=== PATIENT | female | born 1980 | race Caucasian/White ===

== ENCOUNTER 2018-06-23 11:36 | Inpatient (IN) | payer OTHER, SELFPAY ==
[2018-06-23 11:52] VITALS: BMI 24.2
[2018-06-23] MEDS ORDERED: Iohexol 240 (50 ml) PO ONE (12:17)
--- NOTE | 2018-06-23 12:30 | ED PDOC ---
HPI: Abdomen History Per: Patient History/Exam Limitations: no limitations Onset/Duration Of Symptoms: Days Current Symptoms Are (Timing): Still Present Severity: Moderate Location Of Pain/Discomfort: RLQ, Epigastric Associated Symptoms: Loss Of Appetite <Johanne Brian - Last Filed: 06/23/18 17:22> <Sonido Turner III - Last Filed: 07/12/18 14:36> Time Seen by Provider: 06/23/18 12:15 Chief Complaint (Nursing): Abdominal Pain Additional Complaint(s): 37-year-old female, presents to the emergency department with complaints of epigastric abdominal pain ongoing for the past three days. Pain is intermittent in nature and associated with a decreased appetite. Pt states pain became more constant over the past two days, radiating to the right lower quadrant. LMP 06/01. Patient denies hx of abdominal surgeries, nausea/vomiting, diarrhea, dysuria, fever or chills. No other complaints at this time. (Johanne Brian) 37-year-old female, presents to the emergency department with complaints of epigastric abdominal pain ongoing for the past three days. Pain is intermittent in nature and associated with a decreased appetite. Pt states pain became more constant over the past two days, radiating to the right lower quadrant. LMP 06/01. Patient denies hx of abdominal surgeries, nausea/vomiting, diarrhea, dysuria, fever or chills. No other complaints at this time. (Sonido Turner III) Supervising Attending Note - Attestation: I have reviewed all pertinent clinical information: Yes <Sonido Turner III - Last Filed: 07/12/18 14:36> Past Medical History Reviewed: Historical Data, Vital Signs - Medical History PMH: Asthma - Family History Family History: States: No Known Family Hx <Johanne Brian - Last Filed: 06/23/18 17:22> <Sonido Turner III - Last Filed: 07/12/18 14:36> Vital Signs: Last Vital Signs Temp 98.3 F 06/26/18 07:55 Pulse 65 06/26/18 07:55 Resp 18 06/26/18 07:55 BP 96/63 L 06/26/18 07:55 Pulse Ox 99 06/26/18 07:55 - Home Medications Home Medications: Ambulatory Orders Medication Instructions Recorded Albuterol HFA [Ventolin HFA 90 2 puff IH PRN PRN 03/10/16 mcg/actuation (8 g)] Docusate Sodium [Colace] 100 mg PO BID #30 capsule 06/26/18 RX: Ibuprofen [Motrin Tab] 800 mg PO Q8H PRN #21 tab 06/26/18 - Allergies Allergies/Adverse Reactions: Allergies Allergy/AdvReac Type Severity Reaction Status Date / Time No Known Allergies Allergy Verified 03/06/16 12:53 Physical Exam - Reviewed Nursing Documentation Reviewed: Yes Vital Signs Reviewed: Yes - Physical Exam Appears: Positive for: Non-toxic, No Acute Distress Head Exam: Positive for: ATRAUMATIC, NORMOCEPHALIC Skin: Positive for: Normal Color, Warm, Dry. Negative for: Rash Eye Exam: Positive for: Normal appearance Neck: Positive for: Painless ROM Cardiovascular/Chest: Positive for: Regular Rate, Rhythm. Negative for: Murmur Respiratory: Positive for: Normal Breath Sounds. Negative for: Decreased Breath Sounds, Accessory Muscle Use Gastrointestinal/Abdominal: Positive for: Soft, Tenderness (+RLQ, Mild epigastric.). Negative for: Mass, Guarding, Rebound Back: Negative for: L CVA Tenderness, R CVA Tenderness Extremity: Positive for: Normal ROM. Negative for: Deformity Neurologic/Psych: Positive for: Alert <Johanne Brian - Last Filed: 06/23/18 17:22> - Laboratory Results Result Diagrams: 06/23/18 13:20 06/23/18 13:20 - ECG O2 Sat by Pulse Oximetry: 99 Pulse Ox Interpretation: Normal (RA) <Johanne Brian - Last Filed: 06/23/18 17:22> - Laboratory Results Result Diagrams: 06/26/18 05:24 06/25/18 08:50 <Sonido Turner III - Last Filed: 07/12/18 14:36> - Progress ED Course And Treament: NS 1 LITER 500 ML PER HOUR: TRANSVAGINAL US: IMPRESSION: No evidence of fibroid uterus or focal endometrial abnormality. Moderate amount of free fluid in the pelvis which could be physiologic or related to cyst rupture. CT ABD/PELVIS: IMPRESSION: Acute appendicitis with inflammatory changes extending to the terminal ileum and cecum consistent with ruptured appendix and walled-off phlegmon. Communication of results: I discussed findings directly with physician biology laboratory assistant Johanne Brian in the emergency department at 16:11 CALL PLACED TO SURG 16:18 D/W SURG RES 16:24. WE WILL CALL ATTENDING TO DISCUSS THEY ARE AT [facility].375GM IV D/W DR. SEGUNDO 16:48; ADMIT TO CHARLES; KEEP NPO; ZYOSYN 3.375GM Q8 (Johanne Brian) NS 1 LITER 500 ML PER HOUR: TRANSVAGINAL US: IMPRESSION: No evidence of fibroid uterus or focal endometrial abnormality. Moderate amount of free fluid in the pelvis which could be physiologic or related to cyst rupture. CT ABD/PELVIS: IMPRESSION: Acute appendicitis with inflammatory changes extending to the terminal ileum and cecum consistent with ruptured appendix and walled-off phlegmon. Communication of results: I discussed findings directly with physician biology laboratory assistant Johanne Brian in the emergency department at 16:11 CALL PLACED TO SURG 16:18 D/W SURG RES 16:24. WE WILL CALL ATTENDING TO DISCUSS THEY ARE AT [facility] IN [facility] 3.375GM IV D/W DR. SEGUNDO 16:48; ADMIT TO CHARLES; KEEP NPO; ZYOSYN 3.375GM Q8 (Sonido Turner III) Medical Decision Making <Johanne Brian - Last Filed: 06/23/18 17:22> <Sonido Turner III - Last Filed: 07/12/18 14:36> Medical Decision Making: Impression: Abdominal pain Plan: * Bloodwork * CT Abd/Pel * UA * Reassess and Disposition Scribe Attestation: Documented by Yolande Villanueva, acting as a scribe for REUBEN Rayo. Provider Scribe Attestation: All medical record entries made by the Scribe were at my direction and personally dictated by me. I have reviewed the chart and agree that the record accurately reflects my personal performance of the history, physical exam, medical decision making, and the department course for this patient. I have also personally directed, reviewed, and agree with the discharge instructions and disposition. (Johanne Brian) Impression: Abdominal pain Plan: * Bloodwork * CT Abd/Pel * UA * Reassess and Disposition Scribe Attestation: Documented by Yolande Villanueva, acting as a scribe for REUBEN Rayo. Provider Scribe Attestation: All medical record entries made by the Scribe were at my direction and personally dictated by me. I have reviewed the chart and agree that the record accurately reflects my personal performance of the history, physical exam, m edical decision making, and the department course for this patient. I have also personally directed, reviewed, and agree with the discharge instructions and disposition. (Sonido Turner III) Disposition - Patient ED Disposition Is Patient to be Admitted: Yes - Disposition Disposition Time: 16:48 - Pt Status Changed To: Hospital Disposition Of: Inpatient - Admit Certification Admit to Inpatient:: After my assessment, the patient will require hospitalization for at least two midnights. This is because of the severity of symptoms shown, intensity of services needed, and/or the medical risk in this patient being treated as an outpatient. <Johanne Brian - Last Filed: 06/23/18 17:22> <Sonido Turner III - Last Filed: 07/12/18 14:36> - Clinical Impression Clinical Impression: Appendicitis - Disposition Condition: STABLE
[2018-06-23 13:40] LABS: BASO % 0.2 % (0.0-2.0); EOS # 0.2 K/uL (0.0-0.7); EOS % 1.9 % (0.0-4.0); HEMOGLOBIN 13.5 g/dL (12.0-16.0); LYMPH # 1.8 K/uL (1.0-4.3); LYMPH % 18.2 % (20.0-40.0); MEAN CELL VOLUME 89.9 fl (81.0-99.0); MEAN CORPUSCULAR HEMOGLOBIN 30.7 pg (27.0-31.0); MEAN CORPUSCULAR HGB CONC 34.1 g/dL (33.0-37.0); MEAN PLATELET VOLUME 8.7 fl (7.2-11.7); MONO # 0.8 K/uL (0.0-0.8); MONO % 7.9 % (0.0-10.0); NEUT % 71.8 % (50.0-75.0); NRBC % 0.1 % (0.0-0.0); RBC 4.4 Mil/uL (3.80-5.20); RED CELL DISTRIBUTION WIDTH 13.1 % (11.5-14.5); WHITE BLOOD COUNT 9.7 K/uL (4.8-10.8)
[2018-06-23 13:47] LABS: SQUAMOUS EPITHIAL 13 /hpf (0-5); URINE BACTERIA RARE (<OCC); URINE BILIRUBIN NEGATIVE (NEGATIVE); URINE BLOOD NEGATIVE (NEGATIVE); URINE COLOR YELLOW (YELLOW); URINE GLUCOSE (UA) NEG (Normal); URINE LEUKOCYTE ESTERASE SMALL Leu/uL (Negative); URINE PROTEIN NEGATIVE (NEGATIVE); URINE UROBILINOGEN 0.2-1.0 mg/dL (0.2-1.0)
[2018-06-23 13:52] LABS: ALB/GLOB RATIO 1.3 (1.0-2.1); ALBUMIN 4.2 g/dL (3.5-5.0); ALT/SGPT 26 U/L (9-52); AST/SGOT 24 U/L (14-36); BLOOD UREA NITROGEN 12 mg/dl (7-17); CALCIUM 8.9 mg/dL (8.4-10.2); GFR NON-AFRICAN AMERICAN > 60; LIPASE 117 U/L (23-300); URINE CLARITY SL CLOUDY (Clear)
[2018-06-23 14:04] LABS: INR 1.1; PROTHROMBIN TIME 12.1 Seconds (9.8-13.1)
[2018-06-23 14:06] LABS: PARTIAL THROMBOPLASTIN TIME 34.3 Seconds (25.6-37.1)
--- NOTE | 2018-06-23 14:48 | US ---
Date of service: 06/23/2018 HISTORY: r/o ovarian cyst right lower quadrant COMPARISON: None available. TECHNIQUE: Transvaginal pelvic ultrasound was performed. FINDINGS: UTERUS: Measures 8.2 x 5.8 x 4.3 cm. Anteverted, normal in size and appearance. No fibroid or other mass lesion seen. ENDOMETRIUM: Measures 12 mm in diameter. Unremarkable. CERVIX: There are multiple nabothian cysts. RIGHT OVARY: Measures 3.9 x 3.6 x 1.9 cm. No solid mass. Normal flow. LEFT OVARY: Measures 3.8 x 3.8 x 2.1 cm. No solid mass. Normal flow. FREE FLUID: There is moderate amount of free fluid in the pelvis. OTHER FINDINGS: None. IMPRESSION: No evidence of fibroid uterus or focal endometrial abnormality. Moderate amount of free fluid in the pelvis which could be physiologic or related to cyst rupture.
[2018-06-23] MEDS ORDERED: Sodium Chloride 0.9% 50 ML IV ONE (15:27)
[2018-06-23] MEDS ORDERED: Iohexol 300 100 ML IJ ONE (15:27)
[2018-06-23] MEDS ORDERED: Piperacillin/Tazobact 3.375 GM in Sodium Chloride 0.9% 100 ML IVPB STA (16:15)
--- NOTE | 2018-06-23 16:16 | CT ---
Date of service: 06/23/2018 PROCEDURE: CT Abdomen and Pelvis with contrast HISTORY: r/o appendicitis COMPARISON: None. TECHNIQUE: Contrast dose: 95 cc Omnipaque 300. Radiation dose: Total exam DLP = 396.16 mGy-cm. This CT exam was performed using one or more of the following dose reduction techniques: Automated exposure control, adjustment of the mA and/or kV according to patient size, and/or use of iterative reconstruction technique. FINDINGS: LOWER THORAX: Unremarkable. LIVER: Unremarkable. No gross lesion or ductal dilatation. GALLBLADDER AND BILE DUCTS: Unremarkable. PANCREAS: Unremarkable. No gross lesion or ductal dilatation. SPLEEN: Unremarkable. ADRENALS: Unremarkable. No mass. KIDNEYS AND URETERS: Unremarkable. No hydronephrosis. No solid mass. VASCULATURE: Unremarkable. No aortic aneurysm. BOWEL: Unremarkable. No obstruction. No gross mural thickening. APPENDIX: Acute appendicitis. The appendix is dilated common the wall is thickened with contrast enhancement. There is localized inflammatory change likely ruptured appendix with circumferential inflammatory changes about the cecum. Inflammatory changes also extend to the terminal ileum. Clearly the epicenter these findings are about the appendix. PERITONEUM: Trace free fluid identified in the pelvis/cul de sac. No free air. LYMPH NODES: Unremarkable. No enlarged lymph nodes. BLADDER: Unremarkable. REPRODUCTIVE: Unremarkable. BONES: No acute fracture. OTHER FINDINGS: None. IMPRESSION: Acute appendicitis with inflammatory changes extending to the terminal ileum and cecum consistent with ruptured appendix and walled-off phlegmon. Communication of results: I discussed findings directly with physician gallery assistant Johanne Brian in the emergency department at 16:11
[2018-06-23] MEDS ORDERED: Piperacillin/Tazobact 3.375 gm Inj IVPB ONE (16:22)
[2018-06-23] MEDS ORDERED: Sodium Chloride 0.9% 1,000 ML IV STA (17:58)
--- NOTE | 2018-06-23 19:12 | CP.PCM.HP ---
History of Present Illness - History of Present Illness History of Present Illness: Surgery: Dr. Chacon CC: Abd pain HPI: 37F presents with abd pain since Wednesday. Pain started off as aurelia-umbilical , then migrated to RLQ. Pt states that pain is constant, worse with activity. She denies changes in appetite, no N/V/D, no F/C. Only complaints is pain. In ED CT was done with findings consistent with ruptured appendicitis w. phelgmonous changes. PMH: Asthma PSH: none Meds: Albuterol NKDA Social hx: No ETOH/tobacco/drugs Fhx: non-contributory Present on Admission - Present on Admission Any Indicators Present on Admission: No Review of Systems - Review of Systems All systems: reviewed and no additional remarkable complaints except (HPI) Past Patient History - Past Medical History & Family History Past Medical History?: Yes - Past Social History Smoking Status: Never Smoked - CARDIAC Hx Cardiac Disorders: No - PULMONARY Hx Asthma: Yes - NEUROLOGICAL Hx Neurological Disorder: No - HEENT Hx HEENT Problems: No - RENAL Hx Chronic Kidney Disease: No - ENDOCRINE/METABOLIC Hx Endocrine Disorders: No - HEMATOLOGICAL/ONCOLOGICAL Hx Blood Disorders: No - INTEGUMENTARY Hx Dermatological Problems: No - MUSCULOSKELETAL/RHEUMATOLOGICAL Hx Musculoskeletal Disorders: No Hx Falls: No - GASTROINTESTINAL Hx Gastrointestinal Disorders: No - GENITOURINARY/GYNECOLOGICAL Hx Genitourinary Disorders: Yes Other/Comment: Uterine fibroids - PSYCHIATRIC Hx Emotional Abuse: No Hx Physical Abuse: No Hx Substance Use: No - SURGICAL HISTORY Hx Surgeries: No - ANESTHESIA Hx Anesthesia: Yes Hx Anesthesia Reactions: No Hx Malignant Hyperthermia: No Meds Allergies/Adverse Reactions: Allergies Allergy/AdvReac Type Severity Reaction Status Date / Time No Known Allergies Allergy Verified 03/06/16 12:53 Physical Exam - Constitutional Appears: Non-toxic, No Acute Distress - Head Exam Head Exam: ATRAUMATIC, NORMOCEPHALIC - Eye Exam Eye Exam: EOMI - ENT Exam ENT Exam: Mucous Membranes Moist - Neck Exam Neck exam: Positive for: Full Rom - Respiratory Exam Respiratory Exam: NORMAL BREATHING PATTERN. absent: Accessory Muscle Use, Respiratory Distress - GI/Abdominal Exam GI & Abdominal Exam: Soft, Tenderness (RLQ). absent: Distended, Firm, Guarding , Rebound Additional comments: +Obturator sign, (-) psoas sign - Extremities Exam Extremities exam: Negative for: calf tenderness, pedal edema - Neurological Exam Neurological exam: Alert, Oriented x3 Results - Vital Signs Recent Vital Signs: Last Vital Signs Temp 98.2 F 06/23/18 17:55 Pulse 74 06/23/18 17:55 Resp 20 06/23/18 18:23 BP 112/73 06/23/18 17:55 Pulse Ox 99 06/23/18 18:23 - Labs Result Diagrams: 06/23/18 13:20 06/23/18 13:20 Labs: Laboratory Results - last 24 hr 06/23/18 06/23/18 06/23/18 12:30 13:20 13:20 WBC 9.7 RBC 4.40 Hgb 13.5 Hct 39.6 MCV 89.9 MCH 30.7 MCHC 34.1 RDW 13.1 Plt Count 248 MPV 8.7 Neut % (Auto) 71.8 Lymph % (Auto) 18.2 L Steele % (Auto) 7.9 Eos % (Auto) 1.9 Baso % (Auto) 0.2 Neut # (Auto) 7.0 Lymph # (Auto) 1.8 Steele # (Auto) 0.8 Eos # (Auto) 0.2 Baso # (Auto) 0.0 PT INR APTT Sodium 140 Potassium 3.5 L Chloride 104 Carbon Dioxide 30 Anion Gap 10 BUN 12 Creatinine 0.7 Est GFR ( Amer) > 60 Est GFR (Non-Af Amer) > 60 Random Glucose 61 L Calcium 8.9 Total Bilirubin 0.4 AST 24 ALT 26 Alkaline Phosphatase 87 Total Protein 7.4 Albumin 4.2 Globulin 3.2 Albumin/Globulin Ratio 1.3 Lipase 117 Urine Color Urine Clarity Urine pH Ur Specific Townsend Urine Protein Urine Glucose (UA) Urine Ketones Urine Blood Urine Nitrate Urine Bilirubin Urine Urobilinogen Ur Leukocyte Esterase Urine RBC (Auto) Urine Microscopic WBC Ur Squamous Epith Cells Urine Bacteria Blood Type O POSITIVE Antibody Screen Negative BBK History Checked Patient has bt 06/23/18 06/23/18 13:20 13:20 WBC RBC Hgb Hct MCV MCH MCHC RDW Plt Count MPV Neut % (Auto) Lymph % (Auto) Steele % (Auto) Eos % (Auto) Baso % (Auto) Neut # (Auto) Lymph # (Auto) Steele # (Auto) Eos # (Auto) Baso # (Auto) PT 12.1 INR 1.1 APTT 34.3 Sodium Potassium Chloride Carbon Dioxide Anion Gap BUN Creatinine Est GFR ( Amer) Est GFR (Non-Af Amer) Random Glucose Calcium Total Bilirubin AST ALT Alkaline Phosphatase Total Protein Albumin Globulin Albumin/Globulin Ratio Lipase Urine Color Yellow Urine Clarity Sl cloudy Urine pH 7.0 Ur Specific Townsend 1.018 Urine Protein Negative Urine Glucose (UA) Neg Urine Ketones Negative Urine Blood Negative Urine Nitrate Negative Urine Bilirubin Negative Urine Urobilinogen 0.2-1.0 Ur Leukocyte Esterase Small Urine RBC (Auto) 7 H Urine Microscopic WBC 2 Ur Squamous Epith Cells 13 H Urine Bacteria Rare Blood Type Antibody Screen BBK History Checked - Imaging and Cardiology CT scan - abdomen Status: Image reviewed by me, Report reviewed by me Assessment & Plan - Assessment and Plan (Free Text) Assessment: 37F w. perforated appendicitis -IVF -zosyn -will reassess in AM, if pain resolved will plan for interval appendectomy, if pain persists will plan for OR -d/w attending Zemaitis PGY4 Decision To Admit - Pt Status Changed To: Hospital Disposition Of: Inpatient - Admit Certification Admit to Inpatient:: After my assessment, the patient will require hospitalization for at least two midnights. This is because of the severity of symptoms shown, intensity of services needed, and/or the medical risk in this patient being treated as an outpatient. - . Bed Request Type: Med/Surg Admitting Physician: Nathaniel Chacon
[2018-06-23] MEDS: Sodium Chloride 0.9% 1,000 ML IV SCH (21:28)
[2018-06-23] MEDS: Piperacillin/Tazobact 3.375 GM in Sodium Chloride 0.9% 100 ML IVPB SCH (21:33)
[2018-06-24] MEDS ORDERED: Piperacillin/Tazobact 3.375 GM in Sodium Chloride 0.9% 100 ML IVPB SCH (01:00)
[2018-06-24] MEDS: Piperacillin/Tazobact 3.375 GM in Sodium Chloride 0.9% 100 ML IVPB SCH ×4 (04:29→22:00)
[2018-06-24] MEDS: Sodium Chloride 0.9% 1,000 ML IV SCH ×2 (05:31→15:52)
[2018-06-24 05:55] LABS: BASO % 0.2 % (0.0-2.0); EOS # 0.3 K/uL (0.0-0.7); HEMOGLOBIN 12.8 g/dL (12.0-16.0); LYMPH # 1.9 K/uL (1.0-4.3); LYMPH % 22.8 % (20.0-40.0); MEAN CELL VOLUME 90.2 fl (81.0-99.0); MEAN CORPUSCULAR HEMOGLOBIN 30.4 pg (27.0-31.0); MEAN CORPUSCULAR HGB CONC 33.7 g/dL (33.0-37.0); MEAN PLATELET VOLUME 8.1 fl (7.2-11.7); MONO # 0.7 K/uL (0.0-0.8); NEUT # 5.6 K/uL (1.8-7.0); RBC 4.2 Mil/uL (3.80-5.20); RED CELL DISTRIBUTION WIDTH 13.1 % (11.5-14.5); WHITE BLOOD COUNT 8.5 K/uL (4.8-10.8)
[2018-06-24 06:31] LABS: BLOOD UREA NITROGEN 8 mg/dl (7-17); CALCIUM 8.3 mg/dL (8.4-10.2); GFR NON-AFRICAN AMERICAN > 60
--- NOTE | 2018-06-24 07:37 | CP.PCM.PN ---
Subjective - Date & Time of Evaluation Date of Evaluation: 06/24/18 Time of Evaluation: 07:25 - Subjective Subjective: General Surgery Note for Dr. Chacon Patient seen and examined at bedside. No acute event overnight. Patient states abdominal pain has slightly improved. She was afebrile overnight. Denies fever/ chills, nausea/vomting or diarrhea. Patient admits to flatus and BM. She remains NPO. Objective - Vital Signs/Intake and Output Vital Signs (last 24 hours): Temp Pulse Resp BP Pulse Ox 98.4 F 71 18 101/66 97 06/24/18 05:00 06/24/18 05:00 06/24/18 05:00 06/24/18 05:00 06/24/18 05:00 - Medications Medications: Current Medications Acetaminophen (Tylenol 325mg Tab) 650 mg PO Q6 PRN PRN Reason: Headache Last Admin: 06/23/18 21:32 Dose: 650 mg Hydromorphone HCl (Dilaudid) 0.5 mg IVP Q4H PRN PRN Reason: Pain, moderate (4-7) Sodium Chloride (Sodium Chloride 0.9%) 1,000 mls @ 100 mls/hr IV .Q10H ALCIDES Last Admin: 06/24/18 05:31 Dose: 100 mls/hr Piperacillin Sod/Tazobactam (Sod 3.375 gm/ Sodium Chloride) 100 mls @ 100 mls/ hr IVPB Q6 ALCIDES PRN Reason: Protocol Last Admin: 06/24/18 04:29 Dose: 100 mls/hr Ondansetron HCl (Zofran Inj) 4 mg IVP Q6 PRN PRN Reason: Nausea/Vomiting Sennosides (Senokot Tab) 17.2 mg PO HS ALCIDES Last Admin: 06/23/18 21:38 Dose: Not Given - Labs Labs: 06/24/18 05:20 06/24/18 05:20 PT 12.1 Seconds (9.8-13.1) 06/23/18 13:20 INR 1.1 06/23/18 13:20 APTT 34.3 Seconds (25.6-37.1) 06/23/18 13:20 - Additional Findings Additional findings: - Constitutional Appears: Non-toxic, No Acute Distress - Head Exam Head Exam: ATRAUMATIC, NORMOCEPHALIC - Eye Exam Eye Exam: EOMI - ENT Exam ENT Exam: Mucous Membranes Moist - Neck Exam Neck exam: Positive for: Full Rom - Respiratory Exam Respiratory Exam: NORMAL BREATHING PATTERN. absent: Accessory Muscle Use, Respiratory Distress - GI/Abdominal Exam GI & Abdominal Exam: Soft, Tenderness (RLQ). absent: Distended, Firm, Guarding , Rebound Additional comments: (+) Mcburney's point and Obturator sign - Extremities Exam Extremities exam: Negative for: calf tenderness, pedal edema - Neurological Exam Neurological exam: Alert, Oriented x3 Assessment and Plan - Assessment and Plan (Free Text) Assessment: 37F with perforated appendicitis and phlegmonous changes Plan: -NPO -IVF -zosyn -Analgesics/Anti-emetics PRN -Monitor for fevers -Serial abd exams -Strict I's & O's -Further recommendations as per Dr. Ines Bailey PGY2
[2018-06-24] MEDS ORDERED: Bupivacaine HCl 0.5% PF (30 ml) Inj ONE (21:24)
[2018-06-24] MEDS ORDERED: Propofol 10 mg/ml Inj (20 ML) ONE (21:25)
[2018-06-24] MEDS ORDERED: Rocuronium 10 mg/ml (5 ml) ONE (21:25)
[2018-06-24] MEDS ORDERED: Succinylcholine 200 mg/10 ml Inj IV ONE (21:25)
[2018-06-24] MEDS ORDERED: Midazolam 2 MG/2 ML VIAL ONE (21:25)
[2018-06-24] MEDS ORDERED: Lidocaine 1% 5ml Abboject ONE (21:26)
[2018-06-24] MEDS ORDERED: Neostigmine 1:1000 (1 mg/ml) Inj ONE (21:26)
[2018-06-24] MEDS ORDERED: Lidocaine 4% (Laryng-O-Jet) Kit MM ONE (21:30)
[2018-06-24] MEDS ORDERED: Lidocaine 1% w Epi 1:100,000 Inj ONE (21:31)
[2018-06-24] MEDS ORDERED: Lidocaine/Epi 1% 1:100000 20 ML IJ ONE ×2 (22:10)
[2018-06-24] MEDS ORDERED: Bupivacaine 0.5% Inj(30mL) IJ ONE ×2 (22:10)
--- NOTE | 2018-06-24 23:40 | PCM.SURG1 ---
Surgeon's Initial Post Op Note - Surgeon's Notes Surgeon: Ines Laborer Yard: PGY4 Type of Anesthesia: General Endo, Local Pre-Operative Diagnosis: Phlegmonous appendicitis Operative Findings: see op note Post-Operative Diagnosis: Phlegmonous appendicitis Operation Performed: Laparoscopic appendectomy Specimen/Specimens Removed: appendix Estimated Blood Loss: EBL {In ML}: 10 Blood Products Given: N/A Drains Used: No Drains Post-Op Condition: Good Date of Surgery/Procedure: 06/24/18 Time of Surgery/Procedure: 09:50
[2018-06-24] MEDS: HYDROmorphone 0.5 mg/0.5 ml ISec IVP PRN (23:50)
[2018-06-25] MEDS: HYDROmorphone 0.5 mg/0.5 ml ISec IVP PRN (00:25)
[2018-06-25] MEDS: Lactated Ringer's 1,000 ML IV SCH ×5 (00:42→15:58)
[2018-06-25] MEDS: Piperacillin/Tazobact 3.375 GM in Sodium Chloride 0.9% 100 ML IVPB SCH ×4 (04:34→21:51)
--- NOTE | 2018-06-25 08:50 | CP.PCM.PN ---
Subjective - Date & Time of Evaluation Date of Evaluation: 06/25/18 Time of Evaluation: 07:10 - Subjective Subjective: General Surgery Pt seen and examined. OOB in chair. Tolerating sips of clears. Has some pain this AM but it is different from prior to surgery, most in RLQ and is controlled by meds. Denies nausea, emesis, fever, chills. No BM/flatus. Objective - Vital Signs/Intake and Output Vital Signs (last 24 hours): Temp Pulse Resp BP Pulse Ox 97.7 F 81 20 110/67 100 06/25/18 08:14 06/25/18 08:25 06/25/18 08:14 06/25/18 08:14 06/25/18 08:14 Intake and Output: 06/25/18 06/25/18 06:59 18:59 Intake Total 200 Balance 200 - Medications Medications: Current Medications Acetaminophen (Tylenol 325mg Tab) 650 mg PO Q6 PRN PRN Reason: Headache Last Admin: 06/23/18 21:32 Dose: 650 mg Hydromorphone HCl (Dilaudid) 0.5 mg IVP Q4H PRN PRN Reason: Pain, moderate (4-7) Last Admin: 06/25/18 06:10 Dose: 0.5 mg Piperacillin Sod/Tazobactam (Sod 3.375 gm/ Sodium Chloride) 100 mls @ 100 mls/hr IVPB Q6 ALCIDES PRN Reason: Protocol Last Admin: 06/25/18 04:34 Dose: 100 mls/hr Lactated Ringer's (Lactated Ringer's) 1,000 mls @ 110 mls/hr IV .Q9H6M ALCIDES Last Admin: 06/25/18 06:43 Dose: Not Given Lactated Ringer's (Lactated Ringer's) 1,000 mls @ 100 mls/hr IV .Q10H ALCIDES Last Admin: 06/25/18 00:42 Dose: 100 mls Ondansetron HCl (Zofran Inj) 4 mg IVP Q6 PRN PRN Reason: Nausea/Vomiting Last Admin: 06/25/18 06:45 Dose: 4 mg Sennosides (Senokot Tab) 17.2 mg PO HS ALCIDES Last Admin: 06/24/18 22:00 Dose: Not Given - Labs Labs: 06/24/18 05:20 06/24/18 05:20 PT 12.1 Seconds (9.8-13.1) 06/23/18 13:20 INR 1.1 06/23/18 13:20 APTT 34.3 Seconds (25.6-37.1) 06/23/18 13:20 - Constitutional Appears: Non-toxic, No Acute Distress - Head Exam Head Exam: ATRAUMATIC, NORMOCEPHALIC - Eye Exam Eye Exam: EOMI. absent: Scleral icterus - Respiratory Exam Respiratory Exam: NORMAL BREATHING PATTERN. absent: Respiratory Distress - GI/Abdominal Exam GI & Abdominal Exam: Soft, Tenderness (in RLQ and near incision sites. ). absent: Distended, Firm, Guarding, Rigid, Rebound Additional comments: incisions C/D/I - Neurological Exam Neurological Exam: Alert, Awake, Oriented x3 - Skin Skin Exam: Dry, Warm Assessment and Plan - Assessment and Plan (Free Text) Assessment: 37F S/P lap appy, POD#1 Plan: f/u AM labs analgesia PRN zofran PRN Monitor for diet tolerance Continue Abx Encouraged ambulation and CPT/IS use Will D/W Dr. Ines Cabrera PGY4
[2018-06-25 10:31] LABS: BASO % 0.2 % (0.0-2.0); HEMOGLOBIN 12.8 g/dL (12.0-16.0); LYMPH # 0.9 K/uL (1.0-4.3); LYMPH % 8.6 % (20.0-40.0); MEAN CELL VOLUME 90.4 fl (81.0-99.0); MEAN CORPUSCULAR HEMOGLOBIN 30.3 pg (27.0-31.0); MEAN CORPUSCULAR HGB CONC 33.5 g/dL (33.0-37.0); MEAN PLATELET VOLUME 9.4 fl (7.2-11.7); MONO # 0.4 K/uL (0.0-0.8); MONO % 4.2 % (0.0-10.0); NEUT # 9.2 K/uL (1.8-7.0); NRBC % 0.1 % (0.0-0.0); PLATELET COUNT 234 K/uL (130-400); RBC 4.23 Mil/uL (3.80-5.20); RED CELL DISTRIBUTION WIDTH 12.8 % (11.5-14.5); WHITE BLOOD COUNT 10.6 K/uL (4.8-10.8)
[2018-06-25 10:47] LABS: ALB/GLOB RATIO 1.1 (1.0-2.1); ALBUMIN 3.7 g/dL (3.5-5.0); ALT/SGPT 24 U/L (9-52); AST/SGOT 23 U/L (14-36); BLOOD UREA NITROGEN 11 mg/dl (7-17); CALCIUM 8.5 mg/dL (8.4-10.2); GFR NON-AFRICAN AMERICAN > 60
[2018-06-25 12:18] LABS: LYMPHOCYTE 11 % (20-50); MONOCYTE 3 % (0-10); NEUTROPHIL 86 % (42-75); PLATELET ESTIMATE NORMAL (NORMAL); TOTAL CELLS COUNTED 100
[2018-06-25 12:19] LABS: ANISOCYTOSIS SLIGHT; MICROCYTOSIS SLIGHT; OVALOCYTES SLIGHT
[2018-06-25 12:20] LABS: HYPOCHROMIC SLIGHT; LARGE PLATELETS PRESENT
[2018-06-25 13:37] VITALS: RESP 18
[2018-06-25] MEDS ORDERED: Oxycodone/Acetaminophen 5/325 mg Tab PO PRN (17:58)
[2018-06-26] MEDS: Piperacillin/Tazobact 3.375 GM in Sodium Chloride 0.9% 100 ML IVPB SCH (04:00)
[2018-06-26 06:20] LABS: BASO % 0.3 % (0.0-2.0); EOS # 0.1 K/uL (0.0-0.7); HEMOGLOBIN 11.4 g/dL (12.0-16.0); LYMPH # 1.9 K/uL (1.0-4.3); LYMPH % 27.9 % (20.0-40.0); MEAN CELL VOLUME 89.6 fl (81.0-99.0); MEAN CORPUSCULAR HEMOGLOBIN 30.6 pg (27.0-31.0); MEAN CORPUSCULAR HGB CONC 34.1 g/dL (33.0-37.0); MEAN PLATELET VOLUME 8.2 fl (7.2-11.7); MONO # 0.6 K/uL (0.0-0.8); MONO % 8.5 % (0.0-10.0); NEUT # 4.3 K/uL (1.8-7.0); NEUT % 62.3 % (50.0-75.0); RBC 3.74 Mil/uL (3.80-5.20); RED CELL DISTRIBUTION WIDTH 12.5 % (11.5-14.5); WHITE BLOOD COUNT 6.9 K/uL (4.8-10.8)
--- NOTE | 2018-06-26 07:37 | CP.PCM.DIS ---
Provider - Provider Date of Admission: 06/23/18 17:21 Attending physician: Nathaniel Chacon MD Consults: NONE Time Spent in preparation of Discharge (in minutes): 45 Diagnosis - Discharge Diagnosis (1) Ruptured appendicitis Status: Acute Comment: s/p laparoscopic appendectomy Hospital Course - Lab Results Lab Results: Micro Results 06/23/18 13:20 Urine Urine Culture - Final No Growth (<1,000 CFU/ML) Most Recent Lab Values WBC 6.9 K/uL (4.8-10.8) 06/26/18 05:24 RBC 3.74 Mil/uL (3.80-5.20) L 06/26/18 05:24 Hgb 11.4 g/dL (12.0-16.0) L 06/26/18 05:24 Hct 33.5 % (34.0-47.0) L 06/26/18 05:24 MCV 89.6 fl (81.0-99.0) 06/26/18 05:24 MCH 30.6 pg (27.0-31.0) 06/26/18 05:24 MCHC 34.1 g/dL (33.0-37.0) 06/26/18 05:24 RDW 12.5 % (11.5-14.5) 06/26/18 05:24 Plt Count 213 K/uL (130-400) 06/26/18 05:24 MPV 8.2 fl (7.2-11.7) 06/26/18 05:24 Neut % (Auto) 62.3 % (50.0-75.0) 06/26/18 05:24 Lymph % (Auto) 27.9 % (20.0-40.0) 06/26/18 05:24 [place] % (Auto) 8.5 % (0.0-10.0) 06/26/18 05:24 Eos % (Auto) 1.0 % (0.0-4.0) 06/26/18 05:24 Baso % (Auto) 0.3 % (0.0-2.0) 06/26/18 05:24 Neut # (Auto) 4.3 K/uL (1.8-7.0) 06/26/18 05:24 Lymph # (Auto) 1.9 K/uL (1.0-4.3) 06/26/18 05:24 [place] # (Auto) 0.6 K/uL (0.0-0.8) 06/26/18 05:24 Eos # (Auto) 0.1 K/uL (0.0-0.7) 06/26/18 05:24 Baso # (Auto) 0.0 K/uL (0.0-0.2) 06/26/18 05:24 Neutrophils % (Manual) 86 % (42-75) H 06/25/18 08:50 Lymphocytes % (Manual) 11 % (20-50) L 06/25/18 08:50 Monocytes % (Manual) 3 % (0-10) 06/25/18 08:50 Platelet Estimate Normal (NORMAL) 06/25/18 08:50 Large Platelets Present 06/25/18 08:50 Hypochromasia (manual) Slight 06/25/18 08:50 Anisocytosis (manual) Slight 06/25/18 08:50 Microcytosis (manual) Slight 06/25/18 08:50 Ovalocytes Slight 06/25/18 08:50 PT 12.1 Seconds (9.8-13.1) 06/23/18 13:20 INR 1.1 06/23/18 13:20 APTT 34.3 Seconds (25.6-37.1) 06/23/18 13:20 Sodium 137 mmol/l (132-148) 06/25/18 08:50 Potassium 3.8 MMOL/L (3.6-5.0) 06/25/18 08:50 Chloride 105 mmol/L (98-107) 06/25/18 08:50 Carbon Dioxide 23 mmol/L (22-30) 06/25/18 08:50 Anion Gap 13 (10-20) 06/25/18 08:50 BUN 11 mg/dl (7-17) 06/25/18 08:50 Creatinine 0.8 mg/dl (0.7-1.2) 06/25/18 08:50 Est GFR ( Amer) > 60 06/25/18 08:50 Est GFR (Non-Af Amer) > 60 06/25/18 08:50 Random Glucose 91 mg/dL (65-105) 06/25/18 08:50 Calcium 8.5 mg/dL (8.4-10.2) 06/25/18 08:50 Total Bilirubin 0.9 mg/dl (0.2-1.3) 06/25/18 08:50 AST 23 U/L (14-36) 06/25/18 08:50 ALT 24 U/L (9-52) 06/25/18 08:50 Alkaline Phosphatase 85 U/L (38-126) 06/25/18 08:50 Total Protein 7.1 G/DL (6.3-8.2) 06/25/18 08:50 Albumin 3.7 g/dL (3.5-5.0) 06/25/18 08:50 Globulin 3.4 gm/dL (2.2-3.9) 06/25/18 08:50 Albumin/Globulin Ratio 1.1 (1.0-2.1) 06/25/18 08:50 Lipase 117 U/L (23-300) 06/23/18 13:20 Urine Color Yellow (YELLOW) 06/23/18 13:20 Urine Clarity Sl cloudy (Clear) 06/23/18 13:20 Urine pH 7.0 (5.0-8.0) 06/23/18 13:20 Ur Specific [place] 1.018 (1.003-1.030) 06/23/18 13:20 Urine Protein Negative mg/dL (NEGATIVE) 06/23/18 13:20 Urine Glucose (UA) Neg mg/dL (Normal) 06/23/18 13:20 Urine Ketones Negative mg/dL (NEGATIVE) 06/23/18 13:20 Urine Blood Negative (NEGATIVE) 06/23/18 13:20 Urine Nitrate Negative (NEGATIVE) 06/23/18 13:20 Urine Bilirubin Negative (NEGATIVE) 06/23/18 13:20 Urine Urobilinogen 0.2-1.0 mg/dL (0.2-1.0) 06/23/18 13:20 Ur Leukocyte Esterase Small Jenna/uL (Negative) 06/23/18 13:20 Urine RBC (Auto) 7 /hpf (0-3) H 06/23/18 13:20 Urine Microscopic WBC 2 /hpf (0-5) 06/23/18 13:20 Ur Squamous Epith Cells 13 /hpf (0-5) H 06/23/18 13:20 Urine Bacteria Rare (<OCC) 06/23/18 13:20 Blood Type O POSITIVE 06/23/18 12:30 Antibody Screen Negative 06/23/18 12:30 BBK History Checked Patient has bt 06/23/18 12:30 - Hospital Course Hospital Course: 37F presents with abd pain since Wednesday. Pain started off as aurelia-umbilical, then migrated to RLQ. Patient states that pain is constant, worse with activity. She denies changes in appetite. Patient also denies fever/chills, nausea/vomiting or diarrhea. Her only complaint is the pain. In ED, CT was done with findings consistent with ruptured appendicitis with phelgmonous changes. Patient was admitted for ruptured appendicitis. She was made NPO, given IVF and started on IV antibiotics. The initial plan was to treat conservatively for 24 hours to see if there was any improvement. After the 24 hours, patient pain not did improve and actually worsened. The decision was made by Dr. Chacon to take the patient to the OR for laparoscopic appendectomy on 06/24. Patient tolerated the procedure well without any complications. Patient continued to be given IVF and IV antibiotics. Over the next 2 days, patient clinically improved. On 06/26, patient was feeling well, her pain improved and WBC remained normal. She was tolerating diet and ambulating without difficulty. Patient was deemed medically stable for discharge and instructed to follow up within 1-2 weeks as outpatient with Dr. Chacon. (This is a summary of the hospital course. Please refer to EMR for more details.) - Date & Time of H&P Date of H&P: 06/23/18 Time of H&P: 19:08 Discharge Exam - Head Exam Head Exam: ATRAUMATIC, NORMOCEPHALIC - Eye Exam Eye Exam: EOMI, Normal appearance Pupil Exam: PERRL - ENT Exam ENT Exam: Mucous Membranes Moist - Respiratory Exam Respiratory Exam: NORMAL BREATHING PATTERN - Cardiovascular Exam Cardiovascular Exam: REGULAR RHYTHM - GI/Abdominal Exam GI & Abdominal Exam: Normal Bowel Sounds, Soft, Tenderness (very mild at surgical sites). absent: Distended, Firm, Guarding, Pulsatile Mass, Rebound, Rigid Additional comments: surgical sites with dermabond - clean, dry and intact - Extremities Exam Extremities exam: normal capillary refill - Neurological Exam Neurological exam: Alert, CN II-XII Intact, Normal Gait, Oriented x3 - Psychiatric Exam Psychiatric exam: Normal Affect, Normal Mood - Skin Skin Exam: Dry, Intact, Normal Color, Warm Discharge Plan - Discharge Medications Prescriptions: Docusate Sodium [Colace] 100 mg PO BID #30 capsule Ibuprofen [Motrin Tab] 800 mg PO Q8H PRN #21 tab PRN Reason: Pain, Moderate (4-7) - Follow Up Plan Condition: STABLE Disposition: HOME/ ROUTINE Instructions: Appendicitis in Adults, Appendectomy, Laparoscopic Surgery (DC) Additional Instructions: Take Ibuprofen and colace as prescribed NO heavy lifting for 3-4 weeks over 20 lbs Keep area clean and dry May shower No soaking, bathing or swimming for a few weeks Follow up as outpatient with Dr. Chacon within 1-2 weeks Please return to ED if symptoms persist or condition worsens Call Dr. Chacon' office for any issues Referrals: Nathaniel Chacon MD [Staff Provider] -
[2018-06-26 07:55] VITALS: BP 96/63; PULSE 65; TEMP 98.3; O2SAT 99
--- NOTE | 2018-07-12 02:16 | OP ---
PROCEDURE DATE: 06/24/2018 PREOPERATIVE DIAGNOSIS: Acute appendicitis. POSTOPERATIVE DIAGNOSIS: Acute appendicitis. SURGERY: Laparoscopic appendectomy. SURGEON: Nathaniel Chacon MD TYPE OF ANESTHESIA: General endotracheal. DESCRIPTION OF PROCEDURE: The patient was brought to the operating room and placed on the operating table in the supine position. After smooth induction of general endotracheal anesthesia, Venodyne boots were placed both in the legs and prophylactic IV antibiotics were given. The entire abdomen was prepped and draped under usual sterile fashion. Using #15 blade, infraumbilical midline incision was performed in a vertical fashion which was brought down to the subcutaneous tissue using Bovie electrocautery. The linea alba was incised and the peritoneal cavity was accessed. The Ranjan trocar was inserted to the opening and connected with the CO2 tank, generating a pneumoperitoneum up to 15 mmHg. A 10 mm surgical laparoscopic video camera was used to inspect the abdomen. Appendix appeared to be enlarged and inflamed with attachments to the cecum and the terminal ileum ____ reactive fluid in the right pericolic gutter and right pelvis. Under direct laparoscopic visualization, two 5 mm ports were inserted in the lower abdomen through which an endograsper and 5 mm LigaSure were inserted, and the appendix was grasped from the tip and retracted upwards exposing the mesoappendix, which was sealed in a sequential fashion using the 5 mm LigaSure, all the way to the base of the appendix. The camera was fixed to 5 mm 30-degree and inserted through the left lower quadrant port, and through the infraumbilical port, an Endo TOM 45 blue stapler was inserted and fired across the base of the appendix. The specimen was placed in an Endobag, removed from the operating field and pathology appropriately labelled for permanent section. The abdomen was irrigated with copious amounts of warm normal saline. There was no evidence of bleeding or succus discharge from staple line to the base of the appendix. Infraumbilical port was removed, and the fascia was closed with interrupted 0 Vicryl stitch. The integrity of the fascial closure was checked by inserting a 5 mm laparoscopic video camera through the left lower quadrant port. It was also noted that there was no evidence of bleeding, bowel, or omental entrapment. The remaining two 5 mm ports were removed under direct laparoscopic visualization, and there was no evidence of bleeding from the port sites. The skin incision were closed with cely, and sterile dressings were applied. At the end of the surgery, the counts of instruments, gauze, and needles were correct x2. The patient tolerated the surgery well and was transferred in stable condition to the recovery room. Nathaniel Chacon MD
== END 2018-06-26 10:15 | disposition home or self-care (01) | DRG 883 ==
LOC: H.ER 11:36 → H.ERHOLD 17:21 → H.MEDSURG1 18:02
PROVIDERS: ADMIT Specialist; ATTEND Specialist
PROC: 0DTJ4ZZ Resection of Appendix, Percutaneous Endoscopic Approach (ICD-10-PCS; principal; 2018-06-24 21:30)
DX: K35.2 Acute appendicitis with generalized peritonitis (principal); J45.909 Unspecified asthma, uncomplicated